=== PATIENT | male | born 1965 | race Caucasian/White ===

== ENCOUNTER → 2019-05-06 | Day surgery (SDC) | payer BC ==
[~2019-05-06] MED LIST: Iohexol 300 MG/ML 30 ML Bottle PO ONE; Iopamidol 612 MG/ML 150 ML Bottle IV SCH; Midazolam 1 MG/ML 2 ML SDV ONE; Propofol 200 MG/20 ML SDV ONE; Sodium Chloride 0.9% 1,000 ML IV SCH; Sodium Chloride 0.9% 10 ML Syringe FLUSH ONE; Sodium Chloride 0.9% 80 ML IV SCH; fentaNYL 100 MCG/2 ML SDV ONE
--- NOTE | 2019-05-06 12:46 | OR ---
DATE OF PROCEDURE: 05/06/2019 SURGEON: Ian Zafar MD PROCEDURE: Colonoscopy. FINDINGS: Mass at 15 cm (biopsied x8, distal aspect, tattooed in four quadrants). COMPLICATIONS: None. CONTENT SPECIALIST: None. ANESTHESIA: MAC. PREOPERATIVE DIAGNOSIS: Concern for hemorrhoids and requirement for colonoscopy. POSTOPERATIVE DIAGNOSIS: Concern for hemorrhoids and requirement for colonoscopy. RISKS: Risks, benefits, alternatives, and limitations including, but not limited to infection, bleeding, and perforation were explained to the patient, he wished to proceed. PROCEDURE IN DETAIL: The patient was placed in left lateral decubitus position. The colonoscope was introduced, and immediately at 15 cm, a mass which was near obstructing was noted. This was erythematous and had a small amount of bleeding associated with this. This was biopsied x8 using cold biopsy forceps. Scope was not able to be passed proximal to the mass. On retroflexion, no significant abnormalities. The patient tolerated the procedure well. Ian Zafar MD /[id number]
--- NOTE | 2019-05-06 14:54 | CRLCT ---
Final Report: INDICATION: sigmoid colon mass Indication: Sigmoid colon mass. Technique: CT of the chest, abdomen, and pelvis. 132 cc of Isovue-300 IV. Coronal/sagittal reconstruction images. Comparison: None. Findings: Chest: There is a mass present in the right lobe of the thyroid gland, which measures 3 centimeters on image 11, series 2. There is no thoracic lymphadenopathy by size criteria. There are nonenlarged lymph nodes present within the axilla, mediastinum, and pulmonary fitz. For example, 9 millimeter short axis dimension lymph node at station 4R image 44, series 2. Right lower lobe calcified granuloma. No pleural or pericardial effusion. Contralateral, smaller calcified granulomas are present. The lung windows demonstrate no endobronchial mass. There is no honeycomb formation. There is no traction bronchiectasis. There is no acute airspace disease. There is no pneumothorax. There are a few noncalcified pulmonary nodules also present, which are too small to undergo evaluation with PET-CT or biopsy. For example, 4 millimeter nodule in the right upper lobe in image 36, series 3. Abdomen/pelvis: There is a low-density lesion in segment VII of the liver, which is suspicious for a metastasis. This measures 17 millimeters in image 82, series 2. No dilation of intrahepatic biliary radicles. Gas within the left hepatic lobe, which may be pneumobilia. Portal venous gas is a possibility. This gas appears more central than would be expected for portal venous gas. There is no perihepatic ascites. There is no adrenal mass. Spleen size is normal. There is no pancreatic mass, pancreatic duct dilation, or glandular atrophy. There are symmetric nephrograms. There is no solid renal mass. Additional regions of reduced density in the left hepatic lobe near the fissure for the falciform ligament may represent focal fat deposition. These are seen well on image 101 of series 2. Circumferential wall thickening present about the rectum, which is seen best on image 194, series 2. A T3 lesion is suspected. There is gas present in the mesorectal fat, with thickening of the mesorectal fascia. This may be related to recent biopsy. This finding is seen best on image 205, series 2. There are suspicious lymph nodes in the mesorectal fat, which measure up to 8 millimeters in short axis on image 179, series 2. There is no evidence for a small bowel or colonic obstruction. Urinary bladder is normal. Nonenlarged lymph nodes present in both common femoral chains. No retroperitoneal adenopathy. The gastrohepatic ligament is normal. The bone windows demonstrate no lytic or blastic bone lesions. There is osteophytic spurring at the endplates of the thoracic spine. The vertebral body heights are maintained. Manubrium and body of the sternum are intact. Minimal anterolisthesis of L5 on S1, secondary to pars interarticularis defects. Impression: 1. Circumferential wall thickening present about the upper 1/3 of the rectum, seen best on image 193, series 2. On sagittal reconstruction images, this is seen approximately 11 centimeters from the anal verge. 2. There are adjacent lymph nodes in the mesorectal fat, which may represent N1 disease. 3. Mixed density, 17 millimeter lesion in segment VII of the liver is suspicious for a metastasis. MRI of the abdomen without and with intravenous gadolinium may be obtained to further assess disease burden. 4. Extraluminal gas present within the pelvis, adjacent to the lower 1/3 of the rectum, along with fat stranding in the mesorectal fat. This may be related to a recent biopsy. No drainable fluid collection. 5. Calcified and noncalcified pulmonary nodules. Noncalcified nodules are technically indeterminate. Granulomatous disease is favored over pulmonary metastases. 6. A message with these results was left for Dr. Zafar, 05/06/2019, 12:46 p.m. Dictated by Ian Razo MD @ 05/06/2019 12:47:50 PM Please note that all CT scans at this facility use dose modulation, iterative reconstruction, and/or weight-based dosing when appropriate to reduce radiation dose to as low as reasonably achievable. Dictated by: Ian Razo MD @ 05/06/2019 12:48:01 (Electronic Signature) MTDD
== END ==
LOC: JP.SDS 06:53
PROVIDERS: ATTEND Surgery
DX: Z12.11 Encounter for screening for malignant neoplasm of colon (principal); C19 Malignant neoplasm of rectosigmoid junction; Z87.891 Personal history of nicotine dependence
CPT/HCPCS: 45331; 71260; 74177; 88305; 88341; J2250; J2704; J3010; J7030; Q9965

== ENCOUNTER 2019-05-08 21:14 | Inpatient (IN) | payer BC ==
[2019-05-08] MEDS ORDERED: Ondansetron 4 MG/2 ML SDV IVPUSH ONE (21:51)
[2019-05-08] MEDS ORDERED: HYDROmorphone 0.5 MG/0.5 ML Syringe IVPUSH ONE (21:52)
--- NOTE | 2019-05-08 21:52 | EDM.PDOC ---
ED HPI GENERAL MEDICAL PROBLEM - General Chief Complaint: Abdominal Pain Stated Complaint: HAD COLONOSCOPY TUES-HAS PAIN Time Seen by Provider: 05/08/19 21:52 Source of Information: Reports: Patient History Limitations: Reports: No Limitations - History of Present Illness INITIAL COMMENTS - FREE TEXT/NARRATIVE: pt arrived with a histor of a acute onset of mid abdomanal pain. He has been doing alot of vomiting He is having severe heart burn. . He had a colonoscopy for rectal bleeding and was found to have a rectal lesion Onset: Other ( The abdomanal pain started today. He has had rectal bleeding. ) Duration: Hour(s): Location: Reports: Abdomen Associated Symptoms: Reports: Loss of Appetite, Nausea/Vomiting, Other ( persistent rectal bleeding, severe heart burn. 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 - Infectious Disease History Infectious Disease History: Reports: Chicken Pox - Past Surgical History GI Surgical History: Reports: Colonoscopy, Other (See Below) Other GI Surgeries/Procedures: 05/06/19, colonscopy, found sigmoid mass and spot on liver. Had a CT of chest, abd, pelvic. Musculoskeletal Surgical History: Reports: Knee Replacement Social & Family History - Family History Family Medical History: Noncontributory - Tobacco Use Smoking Status *Q: Never Smoker Second Hand Smoke Exposure: No - Caffeine Use Caffeine Use: Reports: Coffee - Recreational Drug Use Recreational Drug Use: No ED ROS GENERAL - Review of Systems Review Of Systems: See Below Constitutional: Reports: No Symptoms, Decreased Appetite HEENT: Reports: No Symptoms Respiratory: Reports: No Symptoms Cardiovascular: Reports: No Symptoms Endocrine: Reports: No Symptoms GI/Abdominal: Reports: Abdominal Pain, Bloody Stool, Nausea, Vomiting, Other ( severe abdomanal pain) ED EXAM, GI/ABD - Physical Exam Exam: See Below Text/Narrative:: pt is having severe abdomanal pain. He continues to pass blood. He is having severe gheartburn. He has been vomiting all day. Exam Limited By: No Limitations General Appearance: Alert, Anxious, Severe Distress Ears: Normal TMs Nose: Normal Inspection Throat/Mouth: Normal Inspection Head: Atraumatic Neck: Normal Inspection Respiratory/Chest: No Respiratory Distress Cardiovascular: Regular Rate, Rhythm GI/Abdominal Exam: No Distention (Male) Exam: Deferred Rectal (Males) Exam: Deferred Back Exam: Normal Inspection Neurological: Alert, Oriented, Normal Cognition Psychiatric: Normal Affect Course - Vital Signs Last Recorded V/S: Last Vital Signs Temp 36.7 C 05/08/19 21:41 Pulse 78 05/08/19 21:41 Resp 21 H 05/08/19 21:41 BP 148/86 H 05/08/19 21:41 Pulse Ox 98 05/08/19 21:41 - Orders/Labs/Meds Orders: Active Orders 24 hr Category Date Time Status EKG Documentation Completion [RC] ASDIRECTED Care 05/08/19 22:33 Active Iopamidol [Isovue-300 (61%)] Med 05/08/19 22:45 Active 126 ml IV . DIRECTED Sodium Chloride 0.9% [Normal Saline] 1,000 ml Med 05/08/19 22:00 Active IV ASDIRECTED Sodium Chloride 0.9% [Normal Saline] 80 ml Med 05/08/19 22:45 Active IV ASDIRECTED Sodium Chloride 0.9% [Saline Flush] Med 05/08/19 22:39 Active 10 ml FLUSH ASDIRECTED PRN EKG 12 Lead [EK] Routine Ther 05/08/19 22:33 Ordered Medication Orders Sodium Chloride (Normal Saline) 1,000 mls @ 999 mls/hr IV ASDIRECTED IRENA Last Admin: 05/08/19 22:28 Dose: 999 mls/hr Sodium Chloride (Normal Saline) 80 mls @ 3 mls/sec IV ASDIRECTED IRENA Last Admin: 05/08/19 23:13 Dose: 3 mls/sec Iopamidol (Isovue-300 (61%)) 126 ml IV . DIRECTED IRENA Last Admin: 05/08/19 23:13 Dose: 150 ml Sodium Chloride (Saline Flush) 10 ml FLUSH ASDIRECTED PRN PRN Reason: Keep Vein Open Labs: Laboratory Tests 05/08/19 05/08/19 05/08/19 Range/Units 21:52 21:52 21:52 WBC 7.0 (4.5-11.0) K/uL RBC 4.87 (4.30-5.90) M/uL Hgb 15.4 H (12.0-15.0) g/dL Hct 45.2 (40.0-54.0) % MCV 93 (80-98) fL MCH 32 H (27-31) pg MCHC 34 (32-36) % Plt Count 181 (150-400) K/uL Neut % (Auto) 72 H (36-66) % Lymph % (Auto) 15 L (24-44) % [place] % (Auto) 10 H (2-6) % Eos % (Auto) 3 (2-4) % Baso % (Auto) 0 (0-1) % Sodium 133 L (140-148) mmol/L Potassium 3.5 L (3.6-5.2) mmol/L Chloride 97 L (100-108) mmol/L Carbon Dioxide 29 (21-32) mmol/L Anion Gap 10.5 (5.0-14.0) mmol/L BUN 6 L (7-18) mg/dL Creatinine 0.7 L (0.8-1.3) mg/dL Est Cr Clr Drug Dosing 129.33 mL/min Estimated GFR (MDRD) > 60 (>60) Glucose 172 H (74-106) mg/dL Calcium 9.9 (8.5-10.1) mg/dL Total Bilirubin 1.0 (0.2-1.0) mg/dL AST 28 (15-37) U/L ALT 42 (12-78) U/L Alkaline Phosphatase 77 (46-116) U/L Troponin I (0.000-0.056) ng/mL Total Protein 7.2 (6.4-8.2) g/dL Albumin 3.2 L (3.4-5.0) g/dL Globulin 4.0 H (2.3-3.5) g/dL Albumin/Globulin Ratio 0.8 L (1.2-2.2) Urine Color Yellow Urine Appearance Clear Urine pH 8.0 (4.5-8.0) Ur Specific [place] 1.005 L (1.008-1.030) Urine Protein Negative (NEGATIVE) mg/dL Urine Glucose (UA) 100 H (NEGATIVE) mg/dL Urine Ketones Negative (NEGATIVE) mg/dL Urine Occult Blood Negative (NEGATIVE) Urine Nitrite Negative (NEGAITVE) Urine Bilirubin Negative (NEGATIVE) Urine Urobilinogen Normal (NORMAL) mg/dL Ur Leukocyte Esterase Negative (NEGATIVE) Urine RBC 0-5 (0-5) Urine WBC 0-5 (0-5) Ur Epithelial Cells Rare Amorphous Sediment Rare Urine Bacteria Rare Urine Mucus Few 05/08/19 Range/Units 22:33 WBC (4.5-11.0) K/uL RBC (4.30-5.90) M/uL Hgb (12.0-15.0) g/dL Hct (40.0-54.0) % MCV (80-98) fL MCH (27-31) pg MCHC (32-36) % Plt Count (150-400) K/uL Neut % (Auto) (36-66) % Lymph % (Auto) (24-44) % [place] % (Auto) (2-6) % Eos % (Auto) (2-4) % Baso % (Auto) (0-1) % Sodium (140-148) mmol/L Potassium (3.6-5.2) mmol/L Chloride (100-108) mmol/L Carbon Dioxide (21-32) mmol/L Anion Gap (5.0-14.0) mmol/L BUN (7-18) mg/dL Creatinine (0.8-1.3) mg/dL Est Cr Clr Drug Dosing mL/min Estimated GFR (MDRD) (>60) Glucose (74-106) mg/dL Calcium (8.5-10.1) mg/dL Total Bilirubin (0.2-1.0) mg/dL AST (15-37) U/L ALT (12-78) U/L Alkaline Phosphatase (46-116) U/L Troponin I < 0.017 (0.000-0.056) ng/mL Total Protein (6.4-8.2) g/dL Albumin (3.4-5.0) g/dL Globulin (2.3-3.5) g/dL Albumin/Globulin Ratio (1.2-2.2) Urine Color Urine Appearance Urine pH (4.5-8.0) Ur Specific [place] (1.008-1.030) Urine Protein (NEGATIVE) mg/dL Urine Glucose (UA) (NEGATIVE) mg/dL Urine Ketones (NEGATIVE) mg/dL Urine Occult Blood (NEGATIVE) Urine Nitrite (NEGAITVE) Urine Bilirubin (NEGATIVE) Urine Urobilinogen (NORMAL) mg/dL Ur Leukocyte Esterase (NEGATIVE) Urine RBC (0-5) Urine WBC (0-5) Ur Epithelial Cells Amorphous Sediment Urine Bacteria Urine Mucus Meds: Medications Generic Name Dose Route Start Last Admin Trade Name Olga PRN Reason Stop Dose Admin Sodium Chloride 1,000 mls @ 999 mls/hr 05/08/19 22:00 05/08/19 22:28 Normal Saline IV 999 mls/hr ASDIRECTED IRENA Administration Sodium Chloride 80 mls @ 3 mls/sec 05/08/19 22:45 05/08/19 23:13 Normal Saline IV 3 mls/sec ASDIRECTED IRENA Administration Iopamidol 126 ml 05/08/19 22:45 05/08/19 23:13 Isovue-300 (61%) IV 150 ml . DIRECTED IRENA Administration Sodium Chloride 10 ml 05/08/19 22:39 Saline Flush FLUSH ASDIRECTED PRN Keep Vein Open Discontinued Medications Generic Name Dose Route Start Last Admin Trade Name Olga PRN Reason Stop Dose Admin Hydromorphone HCl 0.5 mg 05/08/19 21:52 05/08/19 22:01 Dilaudid IVPUSH 05/08/19 21:53 0.5 mg ONETIME ONE Administration Ondansetron HCl 4 mg 05/08/19 21:51 05/08/19 21:59 Zofran IVPUSH 05/08/19 21:52 4 mg ONETIME ONE Administration Pantoprazole Sodium 40 mg 05/08/19 22:33 05/08/19 23:12 Protonix Iv IVPUSH 05/08/19 22:34 40 mg ONETIME ONE Administration - Re-Assessments/Exams Free Text/Narrative Re-Assessment/Exam: 05/08/19 23:47 pt had severe abdomanal pain which sounded like a intermittent obstructive picture. He has been vomiting all day. He now has severe heartburn. He has been passing blood. He had a recent colonoscopy which showed a probable rectal Ca. He has had a cat scan of the chest and abdoman. There is an area in the liver that is questionable. Pt is having heart burn which is unexplained and perhaps he should have a gastro, he has a possible lesion ion his liver which needs workup with a US to further look at the lesion. He will eventually need to be staged with a endorectal US to see if the lesion is through the muscle. 05/08/19 23:49 Departure - Departure Time of Disposition: 23:54 Disposition: Admitted As Inpatient 64 Condition: Fair Clinical Impression: Rectal cancer, Heartburn, Dehydration - Discharge Information Referrals: Queenie Royal MD [Primary Care Provider] - Forms: ED Department Discharge Care Plan Goals: [facility] to [facility] - My Orders Last 24 Hours: My Active Orders 05/08/19 22:00 Sodium Chloride 0.9% [Normal Saline] 1,000 ml IV ASDIRECTED 05/08/19 22:33 EKG Documentation Completion [RC] ASDIRECTED EKG 12 Lead [EK] Routine 05/08/19 22:39 Sodium Chloride 0.9% [Saline Flush] 10 ml FLUSH ASDIRECTED PRN 05/08/19 22:45 Iopamidol [Isovue-300 (61%)] 126 ml IV . DIRECTED Sodium Chloride 0.9% [Normal Saline] 80 ml IV ASDIRECTED - Assessment/Plan Last 24 Hours: My Active Orders 05/08/19 22:00 Sodium Chloride 0.9% [Normal Saline] 1,000 ml IV ASDIRECTED 05/08/19 22:33 EKG Documentation Completion [RC] ASDIRECTED EKG 12 Lead [EK] Routine 05/08/19 22:39 Sodium Chloride 0.9% [Saline Flush] 10 ml FLUSH ASDIRECTED PRN 05/08/19 22:45 Iopamidol [Isovue-300 (61%)] 126 ml IV . DIRECTED Sodium Chloride 0.9% [Normal Saline] 80 ml IV ASDIRECTED
[2019-05-08] MEDS ORDERED: Sodium Chloride 0.9% 1,000 ML IV SCH ×2 (22:00→23:45)
[2019-05-08] MEDS ORDERED: Pantoprazole 40 MG Vial IVPUSH ONE (22:33)
[2019-05-08] MEDS ORDERED: Sodium Chloride 0.9% 10 ML Syringe FLUSH PRN (22:39)
[2019-05-08] MEDS ORDERED: Iopamidol 612 MG/ML 150 ML Bottle IV SCH (22:45)
[2019-05-08] MEDS ORDERED: Sodium Chloride 0.9% 80 ML IV SCH (22:45)
--- NOTE | 2019-05-08 23:36 | CRLCT ---
INDICATION: Mid abdominal pain and vomiting, recent colonoscopy. TECHNIQUE: CT abdomen and pelvis acquired with 126 cc Isovue-300 intravenous contrast. COMPARISON: None. FINDINGS: Lower chest: Unremarkable. Liver: Normal in contour with a hypodense liver lesion at the dome measuring 1.4 centimeters, no significant interval change. Gallbladder and bile ducts: Unremarkable. No stones or inflammation. No biliary dilatation. Pancreas: Unremarkable. No mass or inflammation. Spleen: Unremarkable. Normal in size. No masses. Adrenal glands: Unremarkable. No nodules. Kidneys: Unremarkable. No masses, stones, or hydronephrosis. GI tract: The stomach is decompressed. Small bowel loops in the left flank are upper normal caliber without a well-defined transition point. Appendix is seen and is unremarkable. Colonic diverticulosis with focal circumferential thickening of the rectum measuring 5.0 centimeters which appears to significantly narrow the lumen although without evidence of obstruction. Appearance is consistent the patient`s known rectal mass. Previous perirectal air is no longer seen. However, note is made of adjacent lymph nodes measuring up to 11 millimeters in short axis. Vasculature: Atherosclerosis without abdominal aortic aneurysm. Pelvis: Bladder and prostate are unremarkable. Bones: Spondylolysis L5 with grade 1 anterolisthesis. IMPRESSION: 1. Rectal mass redemonstrated, highly suggestive of a colon neoplasm with adjacent lymphadenopathy, likely local spread. 2. Upper normal caliber small bowel loops. Appearance is nonspecific and there is no definite evidence for obstruction. Enteritis/ileus possible. 3. Indeterminate liver lesion measuring 1.4 centimeters, differential includes metastases. This is not significantly changed from the study 2 days prior. Please note that all CT scans at this facility use dose modulation, iterative reconstruction, and/or weight-based dosing when appropriate to reduce radiation dose to as low as reasonably achievable. Dictated by Jose Ahmadi MD @ May 08 2019 11:23PM Signed by Dr. Jose Ahmadi @ May 08 2019 11:34PM
[2019-05-09] MEDS ORDERED: LORazepam 2 MG/ML SDV IVPUSH ONE (00:14)
--- NOTE | 2019-05-09 00:39 | PCM.HP ---
H&P History of Present Illness - General Date of Service: 05/08/19 Admit Problem/Dx: Admission Diagnosis/Problem Admission Diagnosis/Problem Abdominal pain Source of Information: Patient, Family ( Joy Bell at bedside) History Limitations: Reports: No Limitations - History of Present Illness Initial Comments - Free Text/Narative: chief complaint: abdominal pain This is a 54 year old male present to the ER with uncontrolled abdominal pain and heart burn. reports he had a colonoscopy for rectal bleeding. It was noted on colonoscopy he has a rectal mass with a liver lesion. He was discharged to home. then develops rectal bleeding >10 stools, vomiting, heartburn all day on May 08. He could not longer tolerate the pain came to ER. Past History -53 pound weight loss without dieting since 2018 -rectal bleeding for few weeks -colonoscopy on May 06 with rectal mass and liver lesion by CT scan -had been healthy prior to the recent events. CT of chest, abdomen, pelvis and repeat CT abdomen pelvis shows lower chest unremarkable, liver with hypodense liver lesion at the dome measruing 1.4 centimeter. gallbladder and bile ducts unremarkable, pancreas unremarkably, spleen unremarkable, adrenal glands unremarkable, kidney unremarkable GI tract the stomach is decompressed. small bowel loops in the left flank are upper normal caliber without a well defined transition point. appendix is seen and unremarkable. Colonic diverticulosis wit focal circumferential thickening of the rectum measuring 5.0 centimeters which appears to significantly narrow the lumen although without evidence of obstruction. appearance is consistent the patient's known rectal mass. previous perirectal air is no longer seen however adjacent lymph nodes measuring up to 11 millimeters is short axis. Impression: 1. rectal mass, highly suggestive of colon neoplasm with adjacent lymphadenopathy, likely local spread. 2. upper normal caliber small bowel loops. appearance is non-specific and there is no definite evidence of obstruction. enteritis/ileus possible. 3. indeterminate liver lesion measuring 1.4 cm. differential includes metastases. this is not significantly changed from study 2 days prior. - Related Data Allergies/Adverse Reactions: Allergies Allergy/AdvReac Type Severity Reaction Status Date / Time No Known Allergies Allergy Verified 05/08/19 21:41 Home Medications: Home Meds NK [No Known Home Meds] 05/02/19 [History] Past Medical History Gastrointestinal History: Reports: Other (See Below) Other Gastrointestinal History: bloody stools, thought hemorrhoids. - Infectious Disease History Infectious Disease History: Reports: Chicken Pox - Past Surgical History GI Surgical History: Reports: Colonoscopy, Other (See Below) Other GI Surgeries/Procedures: 05/06/19, colonscopy, found sigmoid mass and spot on liver. Had a CT of chest, abd, pelvic. Musculoskeletal Surgical History: Reports: Knee Replacement Social & Family History - Family History Family Medical History: Noncontributory - Tobacco Use Smoking Status *Q: Never Smoker Second Hand Smoke Exposure: No - Caffeine Use Caffeine Use: Reports: Coffee - Recreational Drug Use Recreational Drug Use: No - Living Situation & Occupation Living situation: Reports: (lives in [place], [place]. with Joy Bell, have 7 children between them ages 31 to 19 years. One Son age 15 years on 2017.) H&P Review of Systems - Review of Systems: Review Of Systems: See Below General: Reports: Malaise, Weakness, Decreased Appetite, Weight Loss (53 pounds in the last 6 months.) HEENT: Reports: No Symptoms Pulmonary: Reports: No Symptoms Cardiovascular: Reports: No Symptoms Gastrointestinal: Reports: Abdominal Pain, Bloody Stool, Diarrhea, Decreased Appetite, Nausea, Vomiting Genitourinary: Reports: No Symptoms Musculoskeletal: Reports: No Symptoms Skin: Reports: No Symptoms Psychiatric: Reports: No Symptoms Neurological: Reports: No Symptoms Hematologic/Lymphatic: Reports: No Symptoms Immunologic: Reports: No Symptoms Exam - Exam Exam: See Below - Vital Signs Vital Signs: Last Vital Signs Temp 36.7 C 05/08/19 21:41 Pulse 78 05/08/19 21:41 Resp 21 H 05/08/19 21:41 BP 148/86 H 05/08/19 21:41 Pulse Ox 98 05/08/19 21:41 Weight: 84.368 kg - Exam General: Alert, Oriented, Cooperative, Mild Distress HEENT: PERRLA, Conjunctiva Clear Neck: Supple, Trachea Midline Lungs: Clear to Auscultation, Normal Respiratory Effort Cardiovascular: Regular Rate, Regular Rhythm GI/Abdominal Exam: Normal Bowel Sounds, Other (flat depressed abdomen with generalized tenderness) (Male) Exam: Deferred Rectal (Males) Exam: Deferred Back Exam: Normal Inspection, Full Range of Motion Extremities: Normal Inspection, Normal Range of Motion, Non-Tender, No Pedal Edema, Normal Capillary Refill Skin: Warm, Dry, Intact Neurological: Strength Equal Bilateral, Normal Speech, Normal Tone Neuro Extensive - Mental Status: Alert, Oriented x3, Normal Mood/Affect, Normal Cognition Psychiatric: Anxious (worried about recent changes in health.), Other (grief related to of 15 year old Son 10-22-2018) - Patient Data Lab Results Last 24 hrs: Laboratory Results - last 24 hr 05/08/19 05/08/19 05/08/19 Range/Units 21:52 21:52 21:52 WBC 7.0 (4.5-11.0) K/uL RBC 4.87 (4.30-5.90) M/uL Hgb 15.4 H (12.0-15.0) g/dL Hct 45.2 (40.0-54.0) % MCV 93 (80-98) fL MCH 32 H (27-31) pg MCHC 34 (32-36) % Plt Count 181 (150-400) K/uL Neut % (Auto) 72 H (36-66) % Lymph % (Auto) 15 L (24-44) % [place] % (Auto) 10 H (2-6) % Eos % (Auto) 3 (2-4) % Baso % (Auto) 0 (0-1) % Sodium 133 L (140-148) mmol/L Potassium 3.5 L (3.6-5.2) mmol/L Chloride 97 L (100-108) mmol/L Carbon Dioxide 29 (21-32) mmol/L Anion Gap 10.5 (5.0-14.0) mmol/L BUN 6 L (7-18) mg/dL Creatinine 0.7 L (0.8-1.3) mg/dL Est Cr Clr Drug Dosing 129.33 mL/min Estimated GFR (MDRD) > 60 (>60) Glucose 172 H (74-106) mg/dL Calcium 9.9 (8.5-10.1) mg/dL Total Bilirubin 1.0 (0.2-1.0) mg/dL AST 28 (15-37) U/L ALT 42 (12-78) U/L Alkaline Phosphatase 77 (46-116) U/L Troponin I (0.000-0.056) ng/mL Total Protein 7.2 (6.4-8.2) g/dL Albumin 3.2 L (3.4-5.0) g/dL Globulin 4.0 H (2.3-3.5) g/dL Albumin/Globulin Ratio 0.8 L (1.2-2.2) Urine Color Yellow Urine Appearance Clear Urine pH 8.0 (4.5-8.0) Ur Specific [place] 1.005 L (1.008-1.030) Urine Protein Negative (NEGATIVE) mg/dL Urine Glucose (UA) 100 H (NEGATIVE) mg/dL Urine Ketones Negative (NEGATIVE) mg/dL Urine Occult Blood Negative (NEGATIVE) Urine Nitrite Negative (NEGAITVE) Urine Bilirubin Negative (NEGATIVE) Urine Urobilinogen Normal (NORMAL) mg/dL Ur Leukocyte Esterase Negative (NEGATIVE) Urine RBC 0-5 (0-5) Urine WBC 0-5 (0-5) Ur Epithelial Cells Rare Amorphous Sediment Rare Urine Bacteria Rare Urine Mucus Few 05/08/19 Range/Units 22:33 WBC (4.5-11.0) K/uL RBC (4.30-5.90) M/uL Hgb (12.0-15.0) g/dL Hct (40.0-54.0) % MCV (80-98) fL MCH (27-31) pg MCHC (32-36) % Plt Count (150-400) K/uL Neut % (Auto) (36-66) % Lymph % (Auto) (24-44) % [place] % (Auto) (2-6) % Eos % (Auto) (2-4) % Baso % (Auto) (0-1) % Sodium (140-148) mmol/L Potassium (3.6-5.2) mmol/L Chloride (100-108) mmol/L Carbon Dioxide (21-32) mmol/L Anion Gap (5.0-14.0) mmol/L BUN (7-18) mg/dL Creatinine (0.8-1.3) mg/dL Est Cr Clr Drug Dosing mL/min Estimated GFR (MDRD) (>60) Glucose (74-106) mg/dL Calcium (8.5-10.1) mg/dL Total Bilirubin (0.2-1.0) mg/dL AST (15-37) U/L ALT (12-78) U/L Alkaline Phosphatase (46-116) U/L Troponin I < 0.017 (0.000-0.056) ng/mL Total Protein (6.4-8.2) g/dL Albumin (3.4-5.0) g/dL Globulin (2.3-3.5) g/dL Albumin/Globulin Ratio (1.2-2.2) Urine Color Urine Appearance Urine pH (4.5-8.0) Ur Specific [place] (1.008-1.030) Urine Protein (NEGATIVE) mg/dL Urine Glucose (UA) (NEGATIVE) mg/dL Urine Ketones (NEGATIVE) mg/dL Urine Occult Blood (NEGATIVE) Urine Nitrite (NEGAITVE) Urine Bilirubin (NEGATIVE) Urine Urobilinogen (NORMAL) mg/dL Ur Leukocyte Esterase (NEGATIVE) Urine RBC (0-5) Urine WBC (0-5) Ur Epithelial Cells Amorphous Sediment Urine Bacteria Urine Mucus Result Diagrams: 05/08/19 21:52 05/08/19 21:52 - Problem List (1) Rectal bleeding SNOMED Code(s): 98080081 ICD Code: K62.5 - HEMORRHAGE OF ANUS AND RECTUM Status: Acute Priority: High Current Visit: Yes (2) Abdominal pain SNOMED Code(s): 52961315 ICD Code: R10.9 - UNSPECIFIED ABDOMINAL PAIN Status: Acute Priority: High Current Visit: Yes Qualifiers: Abdominal location: generalized Qualified Code(s): R10.84 - Generalized abdominal pain (3) Rectal cancer SNOMED Code(s): 503760706 ICD Code: C20 - MALIGNANT NEOPLASM OF RECTUM Status: Acute Priority: High Current Visit: Yes (4) Hypokalemia SNOMED Code(s): 95778377 ICD Code: E87.6 - HYPOKALEMIA Status: Acute Priority: Medium Current Visit: Yes Problem List Initiated/Reviewed/Updated: Yes Orders Last 24hrs: Active Orders 24 hr Category Date Time Status Patient Status Manage Transfer [TRANSFER] Routine ADT 05/09/19 00:15 Ordered EKG Documentation Completion [RC] ASDIRECTED Care 05/08/19 22:33 Active Iopamidol [Isovue-300 (61%)] Med 05/08/19 22:45 Active 126 ml IV . DIRECTED Sodium Chloride 0.9% [Normal Saline] 1,000 ml Med 05/08/19 22:00 Active IV ASDIRECTED Sodium Chloride 0.9% [Normal Saline] 1,000 ml Med 05/08/19 23:45 Active IV ASDIRECTED Sodium Chloride 0.9% [Normal Saline] 80 ml Med 05/08/19 22:45 Active IV ASDIRECTED Sodium Chloride 0.9% [Saline Flush] Med 05/08/19 22:39 Active 10 ml FLUSH ASDIRECTED PRN Resuscitation Status Routine Resus Stat 05/09/19 00:16 Ordered EKG 12 Lead [EK] Routine Ther 05/08/19 22:33 Ordered Medication Orders Sodium Chloride (Normal Saline) 1,000 mls @ 999 mls/hr IV ASDIRECTED [facility] Last Admin: 05/08/19 22:28 Dose: 999 mls/hr Sodium Chloride (Normal Saline) 80 mls @ 3 mls/sec IV ASDIRECTED [facility] Last Admin: 05/08/19 23:13 Dose: 3 mls/sec Sodium Chloride (Normal Saline) 1,000 mls @ 999 mls/hr IV ASDIRECTED [facility] Last Admin: 05/08/19 23:52 Dose: 999 mls/hr Iopamidol (Isovue-300 (61%)) 126 ml IV . DIRECTED [facility] Last Admin: 05/08/19 23:13 Dose: 150 ml Sodium Chloride (Saline Flush) 10 ml FLUSH ASDIRECTED PRN PRN Reason: Keep Vein Open Assessment/Plan Comment:: ASSESSMENT AND PLAN - chief complaint: abdominal pain This is a 54 year old male present to the ER with uncontrolled abdominal pain and heart burn. reports he had a colonoscopy for rectal bleeding. It was noted on colonoscopy he has a rectal mass with a liver lesion. He was discharged to home. then develops rectal bleeding >10 stools, vomiting, heartburn all day on May 08. He could not longer tolerate the pain came to ER. Past History -53 pound weight loss without dieting since 2018 -rectal bleeding for few weeks -colonoscopy on May 06 with rectal mass and liver lesion by CT scan -had been healthy prior to the recent events. CT of chest, abdomen, pelvis and repeat CT abdomen pelvis shows lower chest unremarkable, liver with hypodense liver lesion at the dome measruing 1.4 centimeter. gallbladder and bile ducts unremarkable, pancreas unremarkably, spleen unremarkable, adrenal glands unremarkable, kidney unremarkable GI tract the stomach is decompressed. small bowel loops in the left flank are upper normal caliber without a well defined transition point. appendix is seen and unremarkable. Colonic diverticulosis wit focal circumferential thickening of the rectum measuring 5.0 centimeters which appears to significantly narrow the lumen although without evidence of obstruction. appearance is consistent the patient's known rectal mass. previous perirectal air is no longer seen however adjacent lymph nodes measuring up to 11 millimeters is short axis. Impression: 1. rectal mass, highly suggestive of colon neoplasm with adjacent lymphadenopathy, likely local spread. 2. upper normal caliber small bowel loops. appearance is non-specific and there is no definite evidence of obstruction. enteritis/ileus possible. 3. indeterminate liver lesion measuring 1.4 cm. differential includes metastases. this is not significantly changed from study 2 days prior.Maintenance issues - PLAN: Rectal mass, rectal bleeding, abdominal pain with nausea and vomiting. 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 I reasonably expect the patient will require inpatient services that span a period time over 2 midnights. I reasonably expect this patient to be discharged or transferred within 96 hours [facility] Disposition - anticipate discharge home after the hospital stay Primary care physician - Dr Queenie Royal, [facility] Hospitalist: Dr. Moya
[2019-05-09] MEDS ORDERED: Albuterol 0.083% 2.5 MG/3 ML Neb Soln NEB PRN (01:29)
[2019-05-09] MEDS ORDERED: Potassium Chloride 20 MEQ in Premix Bag 1 BAG IV ONE (01:29)
[2019-05-09] MEDS ORDERED: LORazepam 2 MG/ML SDV IV PRN ×2 (01:29→17:28)
[2019-05-09] MEDS ORDERED: HYDROmorphone/Normal Saline 15 MG/30 ML PCA IV PRN (01:29)
[2019-05-09] MEDS ORDERED: Acetaminophen 325 MG Tab PO PRN (01:29)
[2019-05-09] MEDS ORDERED: Naloxone 0.4 MG/ML SDV IVPUSH PRN (01:29)
[2019-05-09] MEDS ORDERED: Ondansetron 4 MG Tab.DIS PO PRN (01:29)
[2019-05-09] MEDS: Sodium Chloride 0.9% 1,000 ML IV SCH ×2 (02:10→10:07)
[2019-05-09] MEDS ORDERED: Pantoprazole 40 MG Vial IVPUSH SCH (09:00)
[2019-05-09] MEDS ORDERED: Acetaminophen/HYDROcodone 325-5 MG Tab PO PRN (09:49)
[2019-05-09] MEDS: Ibuprofen 600 MG Tab PO SCH ×2 (10:38→17:57)
--- NOTE | 2019-05-09 11:25 | PN ---
DATE OF SERVICE: 05/09/2019 SUBJECTIVE: The patient was admitted by hospitalist service in the evening due to abdominal pain. stable. He had some nausea and vomiting, but not currently. The patient is having diarrhea. OBJECTIVE: VITAL SIGNS: Stable. ABDOMEN: No rebound, no guarding. He is not distended. ASSESSMENT: Colorectal cancer. PLAN: The patient's family and I had a discussion about taking the patient to surgery today versus later in the week. He will require a sigmoid colon resection in addition to liver biopsy. We did discuss laparoscopic surgery. However, due to the evaluation of liver and possible metastasis at this time, I think an open surgery would be best for him. In addition, we discussed the risks, benefits, alternatives, and limitations of surgery including infection, bleeding, ostomy requirements, wound infection and complications, anastomotic failure, cardiovascular compromise along with sepsis were all explained to the patient and wished to proceed. He was also explained the alternatives. We also discussed the fact that we discussed this preoperatively with Oncology and the current recommendation would be a liver biopsy with primary resection and evaluate further and deliver at later date. As far as the timing, the patient is having diarrhea. He is not distended. CT scan shows no evidence of obstruction. The patient would prefer to perform this early next week. I think this is acceptable. He will remain in the hospital until he can tolerate diet and his pain is well controlled. Ian Zafar MD /[id number]
[2019-05-09] MEDS ORDERED: oxyCODONE 5 MG Tab PO PRN (17:27)
--- NOTE | 2019-05-09 20:29 | PCM.PN ---
- General Info Date of Service: 05/09/19 Subjective Update: Mr. Hamilton is a 54-year-old gentleman who was admitted last night with abdominal pain and hematochezia. He has had difficulty with blood in his stool over the past few weeks, on May 16 underwent colonoscopy and unfortunately was found to have a lower colorectal carcinoma. Pathology results from biopsies obtained at the time of colonoscopy confirm malignancy. Over the last 3 days his had increase in blood in the stool and significant abdominal pain especially with bowel movements. Pain is under better control since hospitalization, hemoglobin level has remained stable. - Review of Systems General: Reports: No Symptoms, Weakness. Denies: Fever, Chills Pulmonary: Reports: No Symptoms Cardiovascular: Reports: No Symptoms Gastrointestinal: Reports: Abdominal Pain, Decreased Appetite, Hematochezia, Nausea. Denies: Vomiting - Patient Data Vitals - Most Recent: Last Vital Signs Temp 96.9 F 05/09/19 15:20 Pulse 68 05/09/19 15:20 Resp 16 05/09/19 15:20 BP 140/82 05/09/19 15:20 Pulse Ox 97 05/09/19 15:20 Weight - Most Recent: 198 lb 9.584 oz I&O - Last 24 Hours: Intake & Output 05/09/19 05/09/19 05/09/19 06:59 14:59 22:59 Intake Total 600 4736 Balance 600 4736 Lab Results Last 24 Hours: Laboratory Results - last 24 hr 05/08/19 05/08/19 05/08/19 Range/Units 21:52 21:52 21:52 WBC 7.0 (4.5-11.0) K/uL RBC 4.87 (4.30-5.90) M/uL Hgb 15.4 H (12.0-15.0) g/dL Hct 45.2 (40.0-54.0) % MCV 93 (80-98) fL MCH 32 H (27-31) pg MCHC 34 (32-36) % Plt Count 181 (150-400) K/uL Neut % (Auto) 72 H (36-66) % Lymph % (Auto) 15 L (24-44) % [place] % (Auto) 10 H (2-6) % Eos % (Auto) 3 (2-4) % Baso % (Auto) 0 (0-1) % Sodium 133 L (140-148) mmol/L Potassium 3.5 L (3.6-5.2) mmol/L Chloride 97 L (100-108) mmol/L Carbon Dioxide 29 (21-32) mmol/L Anion Gap 10.5 (5.0-14.0) mmol/L BUN 6 L (7-18) mg/dL Creatinine 0.7 L (0.8-1.3) mg/dL Est Cr Clr Drug Dosing 129.33 mL/min Estimated GFR (MDRD) > 60 (>60) Glucose 172 H (74-106) mg/dL Calcium 9.9 (8.5-10.1) mg/dL Total Bilirubin 1.0 (0.2-1.0) mg/dL AST 28 (15-37) U/L ALT 42 (12-78) U/L Alkaline Phosphatase 77 (46-116) U/L Troponin I (0.000-0.056) ng/mL Total Protein 7.2 (6.4-8.2) g/dL Albumin 3.2 L (3.4-5.0) g/dL Globulin 4.0 H (2.3-3.5) g/dL Albumin/Globulin Ratio 0.8 L (1.2-2.2) Urine Color Yellow Urine Appearance Clear Urine pH 8.0 (4.5-8.0) Ur Specific [place] 1.005 L (1.008-1.030) Urine Protein Negative (NEGATIVE) mg/dL Urine Glucose (UA) 100 H (NEGATIVE) mg/dL Urine Ketones Negative (NEGATIVE) mg/dL Urine Occult Blood Negative (NEGATIVE) Urine Nitrite Negative (NEGAITVE) Urine Bilirubin Negative (NEGATIVE) Urine Urobilinogen Normal (NORMAL) mg/dL Ur Leukocyte Esterase Negative (NEGATIVE) Urine RBC 0-5 (0-5) Urine WBC 0-5 (0-5) Ur Epithelial Cells Rare Amorphous Sediment Rare Urine Bacteria Rare Urine Mucus Few 05/08/19 05/09/19 05/09/19 Range/Units 22:33 06:01 06:01 WBC 5.6 (4.5-11.0) K/uL RBC 4.73 (4.30-5.90) M/uL Hgb 15.2 H (12.0-15.0) g/dL Hct 45.1 (40.0-54.0) % MCV 95 (80-98) fL MCH 32 H (27-31) pg MCHC 34 (32-36) % Plt Count 150 (150-400) K/uL Neut % (Auto) 66 (36-66) % Lymph % (Auto) 17 L (24-44) % [place] % (Auto) 12 H (2-6) % Eos % (Auto) 5 H (2-4) % Baso % (Auto) 1 (0-1) % Sodium 138 L (140-148) mmol/L Potassium 4.3 (3.6-5.2) mmol/L Chloride 103 (100-108) mmol/L Carbon Dioxide 30 (21-32) mmol/L Anion Gap 9.3 (5.0-14.0) mmol/L BUN 5 L (7-18) mg/dL Creatinine 0.8 (0.8-1.3) mg/dL Est Cr Clr Drug Dosing 113.32 mL/min Estimated GFR (MDRD) > 60 (>60) Glucose 129 H (74-106) mg/dL Calcium 8.7 (8.5-10.1) mg/dL Total Bilirubin (0.2-1.0) mg/dL AST (15-37) U/L ALT (12-78) U/L Alkaline Phosphatase (46-116) U/L Troponin I < 0.017 (0.000-0.056) ng/mL Total Protein (6.4-8.2) g/dL Albumin (3.4-5.0) g/dL Globulin (2.3-3.5) g/dL Albumin/Globulin Ratio (1.2-2.2) Urine Color Urine Appearance Urine pH (4.5-8.0) Ur Specific [place] (1.008-1.030) Urine Protein (NEGATIVE) mg/dL Urine Glucose (UA) (NEGATIVE) mg/dL Urine Ketones (NEGATIVE) mg/dL Urine Occult Blood (NEGATIVE) Urine Nitrite (NEGAITVE) Urine Bilirubin (NEGATIVE) Urine Urobilinogen (NORMAL) mg/dL Ur Leukocyte Esterase (NEGATIVE) Urine RBC (0-5) Urine WBC (0-5) Ur Epithelial Cells Amorphous Sediment Urine Bacteria Urine Mucus Med Orders - Current: Current Medications Acetaminophen (Tylenol) 650 mg PO Q4H PRN PRN Reason: Pain (Mild 1-3)/fever Hydrocodone Bitart/Acetaminophen ([place] 325-5 Mg) 1 - 2 tab PO Q4H PRN PRN Reason: Abdominal Pain Albuterol (Proventil Neb Soln) 2.5 mg NEB Q4H PRN PRN Reason: Shortness Of Breath/wheezing Ibuprofen (Motrin) 600 mg PO Q8H [facility] Last Admin: 05/09/19 17:57 Dose: 600 mg Lorazepam (Ativan) 0.5 mg IV Q4H PRN PRN Reason: Nausea/Vomiting Ondansetron HCl (Zofran Odt) 4 mg PO Q6H PRN PRN Reason: Nausea able to take PO Oxycodone HCl (Oxycodone) 10 mg PO Q4H PRN PRN Reason: Pain Pantoprazole Sodium (Protonix Iv) 40 mg IVPUSH Q12H [facility] Last Admin: 05/09/19 10:38 Dose: 40 mg Discontinued Medications Hydromorphone HCl (Dilaudid) 0.5 mg IVPUSH ONETIME ONE Stop: 05/08/19 21:53 Last Admin: 05/08/19 22:01 Dose: 0.5 mg Hydromorphone HCl (Dilaudid Study Lead 15 Mg In Ns 30 Ml) 0 mg IV ASDIRECTED PRN; Protocol PRN Reason: Pain Last Admin: 05/09/19 02:08 Dose: 15 mg Sodium Chloride (Normal Saline) 1,000 mls @ 999 mls/hr IV ASDIRECTED [facility] Last Admin: 05/08/19 22:28 Dose: 999 mls/hr Sodium Chloride (Normal Saline) 80 mls @ 3 mls/sec IV ASDIRECTED [facility] Last Admin: 05/08/19 23:13 Dose: 3 mls/sec Sodium Chloride (Normal Saline) 1,000 mls @ 999 mls/hr IV ASDIRECTED [facility] Last Admin: 05/08/19 23:52 Dose: 999 mls/hr Potassium Chloride 20 meq/ (Premix) 100 mls @ 50 mls/hr IV ONETIME ONE Stop: 05/09/19 03:28 Last Admin: 05/09/19 02:31 Dose: 50 mls/hr Sodium Chloride (Normal Saline) 1,000 mls @ 125 mls/hr IV ASDIRECTED [facility] Last Admin: 05/09/19 10:07 Dose: 125 mls/hr Iopamidol (Isovue-300 (61%)) 126 ml IV . DIRECTED [facility] Last Admin: 05/08/19 23:13 Dose: 150 ml Lidocaine HCl (Xylocaine-Mpf 1%) 5 ml INJECT ONETIME ONE Stop: 05/09/19 02:22 Last Admin: 05/09/19 02:32 Dose: 5 ml Lorazepam (Ativan) 1 mg IVPUSH ONETIME ONE Stop: 05/09/19 00:15 Last Admin: 05/09/19 00:41 Dose: 1 mg Lorazepam (Ativan) 1 mg IV Q6H PRN PRN Reason: Nausea/Vomiting Naloxone HCl (Narcan) 0.4 mg IVPUSH Q2M PRN PRN Reason: Respiratory Distress Ondansetron HCl (Zofran) 4 mg IVPUSH ONETIME ONE Stop: 05/08/19 21:52 Last Admin: 05/08/19 21:59 Dose: 4 mg Pantoprazole Sodium (Protonix Iv) 40 mg IVPUSH ONETIME ONE Stop: 05/08/19 22:34 Last Admin: 05/08/19 23:12 Dose: 40 mg Sodium Chloride (Saline Flush) 10 ml FLUSH ASDIRECTED PRN PRN Reason: Keep Vein Open - Exam Quality Assessment: DVT Prophylaxis General: Alert, Oriented, Cooperative, Mild Distress Lungs: Clear to Auscultation, Normal Respiratory Effort Cardiovascular: Regular Rate, Regular Rhythm, No Murmurs GI/Abdominal Exam: Soft, Non-Tender, No Organomegaly, No Distention Extremities: Non-Tender, No Pedal Edema - Problem List Review Problem List Initiated/Reviewed/Updated: Yes - My Orders Last 24 Hours: My Active Orders 05/09/19 12:24 Dietary Supplements [RC] WITHMEALSANDBED 05/09/19 17:27 oxyCODONE 10 mg PO Q4H PRN 05/09/19 17:28 LORazepam [Ativan] 0.5 mg IV Q4H PRN Convert IV to Saline Lock [OM.PC] Routine 05/09/19 Dinner Full Liquid Diet [DIET] 05/10/19 05:11 HGB [HEMOGLOBIN] [HEME] AM 05/10/19 07:30 Pantoprazole [ProTONIX] 40 mg PO BIDAC - Plan Plan:: ASSESSMENT AND PLAN COLORECTAL CARCINOMA-densified on colonoscopy 3 days ago, complicated by leading and pain. Current bleeding does not seem to be hemodynamically significant -Pain medication as needed -Full liquid diet -Dietary supplements 4 times daily -Saline lock IV -Surgery Sunday with Dr. Zafar Hypokalemia-resolved after potassium replacement Maintenance issues - DVT prophylaxis - SCD - GI prophylaxis - PPI - Nutrition - full liquids - Payne catheter - not indicated -consult to Spiritual CODE STATUS - full Admission justification - This patient will be admitted for inpatient services and is medically appropriate meeting medical necessity for inpatient admission as outlined in my documentation. I reasonably expect the patient will require inpatient services that span a period time over 2 midnights. I reasonably expect this patient to be discharged or transferred within 96 hours [facility]. Disposition - anticipate discharge home tomorrow Primary care physician - Dr Queenie Royal, [facility] Hospitalist: Dr. Moya
[2019-05-10] MEDS: Ibuprofen 600 MG Tab PO SCH ×2 (02:48→11:04)
[2019-05-10] MEDS ORDERED: Pantoprazole 40 MG Tab.CR PO SCH (07:30)
--- NOTE | 2019-05-10 12:32 | PCM.DCSUM1 ---
Discharge Summary - Hospital Course Brief History: Mr. Hamilton is a 54-year-old gentleman who was admitted through the emergency department with abdominal pain and bloody stools secondary to underlying colorectal carcinoma. - Discharge Data Discharge Date: 05/10/19 Discharge Disposition: Home, Self-Care 01 Condition: Fair - Discharge Diagnosis/Problem(s) (1) Heartburn SNOMED Code(s): 90898963 ICD Code: R12 - HEARTBURN Status: Acute Current Visit: Yes (2) Dehydration SNOMED Code(s): 95066699 ICD Code: E86.0 - DEHYDRATION Status: Acute Current Visit: Yes (3) Rectal bleeding SNOMED Code(s): 50874009 ICD Code: K62.5 - HEMORRHAGE OF ANUS AND RECTUM Status: Acute Priority: High Current Visit: Yes (4) Rectal cancer SNOMED Code(s): 621266823 ICD Code: C20 - MALIGNANT NEOPLASM OF RECTUM Status: Chronic Priority: High Current Visit: Yes - Patient Summary/Data Consults: Consultations 05/09/19 01:29 Consult to Physician [CONS] Routine Consulting Provider: Ian Zafar Call Completed to Consulting Physician: No Reason for Consult: 05/06 colonscopy, rectal bleeding, nausea, vomiting Date Notified: 05/09/19 Consult to Spiritual Care [CONS] Routine 05/09/19 09:47 Consult to Dietary [Consult to [employer]] [CONS] Routine Comment: Physician Instructions: Quantity: Reason for Consult: please talk to charge nurse Hospital Course: Mr. Hamilton is a 54-year-old gentleman who was admitted through the emergency department with abdominal pain and hematochezia. He has had difficulty with blood in his stool over the past few weeks, on May 06 underwent colonoscopy and unfortunately was found to have a lower colorectal carcinoma. Pathology results from biopsies obtained at the time of colonoscopy confirm malignancy. Over the last 3 days his had increase in blood in the stool and significant abdominal pain especially with bowel movements. On admission he was given pain medication and also medication as needed for nausea. IV fluids were initiated for hydration. Following morning hemoglobin level had remained fairly stable and he was feeling somewhat improved with less pain and nausea. IV fluids were discontinued and he was transitioned to oral pain medication. By the morning of discharge was much more stable with good control of abdominal pain and no further nausea and vomiting. He continued to experience some bloody stools, hemoglobin dropped only mildly consistent with dilution secondary to hydration. He will be discharged home with pain medication and medication for nausea as needed. He will be getting his bowel prep today and will return on May [address] Zafar. Activity will be as tolerated and he will remain on a full liquid diet, with nutritional supplements 4 times daily. He is instructed to return to the emergency department if he notes recurrent symptoms of severe pain or increase in bleeding. - Patient Instructions Diet: Full Liquid Diet Diet, Other: 8 ounces of dietary supplement 4 times daily Activity: As Tolerated Other/Special Instructions: Begin bowel prep today. Return for surgery May 12. - Discharge Plan *PRESCRIPTION DRUG MONITORING PROGRAM REVIEWED*: Not Applicable *COPY OF PRESCRIPTION DRUG MONITORING REPORT IN PATIENT OSMANI: Not Applicable Prescriptions/Med Rec: Acetaminophen/HYDROcodone [Eastern 325-5 MG] 1 tab PO Q6H PRN #15 tab PRN Reason: Abdominal Pain Ondansetron [Zofran ODT] 4 mg PO Q6H PRN #12 tab.dis PRN Reason: Nausea able to take PO Pantoprazole [ProTONIX] 40 mg PO BIDAC #30 tab.cr Home Medications: Home Meds Acetaminophen/HYDROcodone [Eastern 325-5 MG] 1 tab PO Q6H PRN #15 tab 05/10/19 [Rx ] Ondansetron [Zofran ODT] 4 mg PO Q6H PRN #12 tab.dis 05/10/19 [Rx] Pantoprazole [ProTONIX] 40 mg PO BIDAC #30 tab.cr 05/10/19 [Rx] Referrals: Queenie Royal MD [Primary Care Provider] - - Discharge Summary/Plan Comment DC Time >30 min.: No - Patient Data Vitals - Most Recent: Last Vital Signs Temp 97.6 F 05/10/19 11:00 Pulse 82 05/10/19 11:00 Resp 18 05/10/19 11:00 BP 154/81 H 05/10/19 11:00 Pulse Ox 97 05/10/19 11:00 Weight - Most Recent: 198 lb 9.584 oz I&O - Last 24 hours: Intake & Output 05/09/19 05/10/19 05/10/19 22:59 06:59 14:59 Intake Total 4736 Output Total 150 Balance 4736 -150 Lab Results - Last 24 hrs: Laboratory Results - last 24 hr 05/10/19 Range/Units 05:30 Hgb 14.5 (12.0-15.0) g/dL Med Orders - Current: Current Medications Acetaminophen (Tylenol) 650 mg PO Q4H PRN PRN Reason: Pain (Mild 1-3)/fever Hydrocodone Bitart/Acetaminophen (Eastern 325-5 Mg) 1 - 2 tab PO Q4H PRN PRN Reason: Abdominal Pain Albuterol (Proventil Neb Soln) 2.5 mg NEB Q4H PRN PRN Reason: Shortness Of Breath/wheezing Ibuprofen (Motrin) 600 mg PO Q8H [facility] Last Admin: 05/10/19 11:04 Dose: Not Given Lorazepam (Ativan) 0.5 mg IV Q4H PRN PRN Reason: Nausea/Vomiting Ondansetron HCl (Zofran Odt) 4 mg PO Q6H PRN PRN Reason: Nausea able to take PO Oxycodone HCl (Oxycodone) 10 mg PO Q4H PRN PRN Reason: Pain Pantoprazole Sodium (Protonix) 40 mg PO BIDAC [facility] Last Admin: 05/10/19 07:41 Dose: 40 mg Discontinued Medications Hydromorphone HCl (Dilaudid) 0.5 mg IVPUSH ONETIME ONE Stop: 05/08/19 21:53 Last Admin: 05/08/19 22:01 Dose: 0.5 mg Hydromorphone HCl (Dilaudid [employer] Insulator Helper 15 Mg In Ns 30 Ml) 0 mg IV ASDIRECTED PRN; Protocol PRN Reason: Pain Last Admin: 05/09/19 02:08 Dose: 15 mg Sodium Chloride (Normal Saline) 1,000 mls @ 999 mls/hr IV ASDIRECTED [facility] Last Admin: 05/08/19 22:28 Dose: 999 mls/hr Sodium Chloride (Normal Saline) 80 mls @ 3 mls/sec IV ASDIRECTED [facility] Last Admin: 05/08/19 23:13 Dose: 3 mls/sec Sodium Chloride (Normal Saline) 1,000 mls @ 999 mls/hr IV ASDIRECTED [facility] Last Admin: 05/08/19 23:52 Dose: 999 mls/hr Potassium Chloride 20 meq/ (Premix) 100 mls @ 50 mls/hr IV ONETIME ONE Stop: 05/09/19 03:28 Last Admin: 05/09/19 02:31 Dose: 50 mls/hr Sodium Chloride (Normal Saline) 1,000 mls @ 125 mls/hr IV ASDIRECTED [facility] Last Admin: 05/09/19 10:07 Dose: 125 mls/hr Iopamidol (Isovue-300 (61%)) 126 ml IV . DIRECTED [facility] Last Admin: 05/08/19 23:13 Dose: 150 ml Lidocaine HCl (Xylocaine-Mpf 1%) 5 ml INJECT ONETIME ONE Stop: 05/09/19 02:22 Last Admin: 05/09/19 02:32 Dose: 5 ml Lorazepam (Ativan) 1 mg IVPUSH ONETIME ONE Stop: 05/09/19 00:15 Last Admin: 05/09/19 00:41 Dose: 1 mg Lorazepam (Ativan) 1 mg IV Q6H PRN PRN Reason: Nausea/Vomiting Naloxone HCl (Narcan) 0.4 mg IVPUSH Q2M PRN PRN Reason: Respiratory Distress Ondansetron HCl (Zofran) 4 mg IVPUSH ONETIME ONE Stop: 05/08/19 21:52 Last Admin: 05/08/19 21:59 Dose: 4 mg Pantoprazole Sodium (Protonix Iv) 40 mg IVPUSH ONETIME ONE Stop: 05/08/19 22:34 Last Admin: 05/08/19 23:12 Dose: 40 mg Pantoprazole Sodium (Protonix Iv) 40 mg IVPUSH Q12H [facility] Last Admin: 05/09/19 10:38 Dose: 40 mg Sodium Chloride (Saline Flush) 10 ml FLUSH ASDIRECTED PRN PRN Reason: Keep Vein Open - Exam General: Reports: Alert, Oriented, Cooperative, Mild Distress Lungs: Reports: Clear to Auscultation, Normal Respiratory Effort Cardiovascular: Reports: Regular Rate, Regular Rhythm, No Murmurs GI/Abdominal Exam: Soft, Non-Tender, No Organomegaly, No Distention
== END 2019-05-10 14:11 | disposition home or self-care (01) | DRG 240 ==
LOC: JP.ED 21:14 → JP.MS 05-09 00:15
PROVIDERS: ADMIT Hospitalist; ATTEND Hospitalist
DX: C19 Malignant neoplasm of rectosigmoid junction (principal); E86.0 Dehydration; R12 Heartburn; K76.9 Liver disease, unspecified; K62.5 Hemorrhage of anus and rectum; E87.6 Hypokalemia; Z96.659 Presence of unspecified artificial knee joint
CPT/HCPCS: 36415; 74177; 80048; 80053; 81001; 84484; 85018; 85025; 93005; 96361; 96374; 96375; 99284-25; A9270-GY; C9113; J1170; J2001; J2060; J2405; J3480; J7030

== ENCOUNTER 2019-05-12 11:37 | Day surgery (SDC) | payer BC ==
[2019-05-12] MEDS: Sodium Chloride 0.9% 1,000 ML IV SCH ×2 (12:28→17:13)
[2019-05-12] MEDS ORDERED: metroNIDAZOLE/Normal Saline 500 MG in Premix Bag 1 BAG IV ONE (13:00)
[2019-05-12] MEDS ORDERED: ceFAZolin 2 GM in Premix Bag 1 BAG IV ONE (13:00)
[2019-05-12] MEDS ORDERED: fentaNYL 250 MCG/5 ML SDV ONE (13:39)
[2019-05-12] MEDS ORDERED: Glycopyrrolate 0.2 MG/ML 5 ML MDV ONE (13:40)
[2019-05-12] MEDS ORDERED: Ondansetron 4 MG/2 ML SDV ONE (13:40)
[2019-05-12] MEDS ORDERED: Propofol 200 MG/20 ML SDV ONE (13:40)
[2019-05-12] MEDS ORDERED: Dexamethasone 4 MG/ML SDV ONE (13:40)
[2019-05-12] MEDS ORDERED: Neostigmine Methylsulfate 1 MG/ML 5 ML Syringe ONE (13:40)
[2019-05-12] MEDS ORDERED: Rocuronium 50 MG/5 ML Vial ONE (13:40)
[2019-05-12] MEDS ORDERED: Succinylcholine 200 MG/10 ML MDV ONE (13:40)
[2019-05-12] MEDS ORDERED: fentaNYL 2,500 MCG in Sodium Chloride 0.9% 200 ML EPIDUR SCH (13:43)
[2019-05-12] MEDS ORDERED: Naloxone 0.4 MG/ML SDV IVPUSH PRN (13:43)
[2019-05-12] MEDS ORDERED: Sodium Chloride 0.9% 10 ML ONE (15:01)
[2019-05-12] MEDS ORDERED: ePHEDrine 50 MG/ML SDV ONE (15:16)
[2019-05-12] MEDS ORDERED: Sugammadex Sodium 200 MG/2 ML VIAL ONE (15:56)
[2019-05-12] MEDS ORDERED: Morphine 2 MG/ML Syringe IVPUSH PRN (20:34)
[2019-05-12] MEDS ORDERED: Zolpidem 5 MG Tab PO PRN (20:35)
[2019-05-12] MEDS: Acetaminophen/HYDROcodone 325-5 MG Tab PO PRN (20:57)
[2019-05-12] MEDS ORDERED: Tamsulosin 0.4 MG Cap.ER PO SCH (21:00)
[2019-05-13] MEDS: Acetaminophen/HYDROcodone 325-5 MG Tab PO PRN ×2 (05:05→09:40)
[2019-05-13] MEDS: Sodium Chloride 0.9% 1,000 ML IV SCH (06:38)
--- NOTE | 2019-05-13 08:42 | OR ---
DATE OF PROCEDURE: 05/12/2019 SURGEON: Ian Zafar MD PROCEDURES: 1. Diagnostic laparoscopy. 2. Liver biopsy, segment II. 3. Biopsy of nodular studding of right colon. INDICATIONS: This is a pleasant 54-year-old male, who underwent a colonoscopy and was diagnosed with a mass at 15 cm. The patient underwent a CT scan, which showed a mass on the liver. In addition, the patient has a mass at 15 cm, and it was unclear if this was a truly rectal cancer or a colon cancer. In addition, the patient has had signs of complete bowel obstruction; therefore, colonoscopy would be indicated to evaluate if the patient has a complete rectal cancer obstruction, thus requiring an emergent resection for obstruction. RISKS: Risks, benefits, alternatives, and limitations including, but not limited to infection; bleeding; biopsies; false positives and false negatives; possibility of injury to bowel, bladder and blood vessels. The patient understands these procedures and risks, and wishes to proceed. FINDINGS: 1. Improvement in the lumen of the rectal cancer, although, this is greater than two- thirds of the circumference of the rectum, however, stool can still pass through with a lumen of approximately 1 cm or less. 2. Mass at segment II concerning for colorectal cancer (biopsied using electrocautery). 3. No definitive masses noted at segment VII. Multiple images were taken of this. 4. Nodular studding, right ascending colon, concerning for malignancy. ANESTHESIA: General/local. PROCEDURE IN DETAIL: The patient was placed in supine position. A supraumbilical curvilinear incision was made. A Veress needle was used to enter the abdomen without abnormality. A drop test was performed without abnormality. A diagnostic laparoscopy was investigated first. The colon was inspected. The sigmoid colon with its mass was distal to the pelvic brim. There was no evidence of perforation or contamination. This was performed in conjunction with two 5 mm ports placed in left and right abdomen. The colon was inspected. In the right colon, there were nodularities concerning for metastatic spread and 2 of these were biopsied using scissors and counter traction. Of note, no energy source was used in proximity to the colon. The small bowel was inspected. The liver itself in segment VII, VIII, IX and all other segments, there was no evidence of nodularity or studding. However, in segment II, there was an area approximately 1 cm in size concerning for metastases, which was biopsied. Biopsy area was controlled with electrocautery. No other abnormalities were noted. The air was removed. The wounds were closed with 3-0 Vicryl and 4-0 Vicryl interrupted running fashion after irrigation. Dermabond was applied. Colonoscopy was then performed next. This did show narrowing of his lumen, however, this was stable. The patient did have obstruction in the post-colonoscopy phase, however, this appears to be resolved. In summation, the patient may proceed with radiation and chemotherapy. There was no evidence of perforation as was the concern on the original CT scan. In addition, there was concern for metastases to both the liver and the right colon. The patient tolerated the procedure well. Ian Zafar MD /[id number]
== END 2019-05-13 14:15 | disposition home or self-care (01) ==
LOC: JP.SDS 11:37 → JP.MS 16:45 → JP.SDS 05-13 14:15
PROVIDERS: ATTEND Surgery
DX: C78.7 Secondary malignant neoplasm of liver and intrahepatic bile duct (principal); C20 Malignant neoplasm of rectum; K76.0 Fatty (change of) liver, not elsewhere classified; K21.9 Gastro-esophageal reflux disease without esophagitis; E87.6 Hypokalemia
CPT/HCPCS: 36415; 45330; 47379; 49321; 80048; 85027; 86850; 86900; 86901; 86920; 86922; A9270; J0330; J0690; J1100; J2405; J2704; J2710; J3010; J3490; J7030; J7050; 88304; 88307; 88341; 88342

== ENCOUNTER 2019-09-18 07:24 | Inpatient (IN) | payer BC ==
[2019-09-18] MEDS ORDERED: fentaNYL 250 MCG/5 ML SDV ONE (08:06)
[2019-09-18] MEDS ORDERED: Neostigmine Methylsulfate 1 MG/ML 5 ML Syringe ONE (08:07)
[2019-09-18] MEDS ORDERED: Glycopyrrolate 0.2 MG/ML 5 ML MDV ONE (08:07)
[2019-09-18] MEDS ORDERED: Rocuronium 50 MG/5 ML Vial ONE (08:07)
[2019-09-18] MEDS ORDERED: Succinylcholine 200 MG/10 ML MDV ONE (08:07)
[2019-09-18] MEDS ORDERED: Ondansetron 4 MG/2 ML SDV ONE (08:07)
[2019-09-18] MEDS ORDERED: Propofol 200 MG/20 ML SDV ONE (08:07)
[2019-09-18] MEDS ORDERED: Dexamethasone 4 MG/ML SDV ONE (08:07)
[2019-09-18] MEDS: Sodium Chloride 0.9% 1,000 ML IV SCH (09:04)
[2019-09-18] MEDS ORDERED: Naloxone 0.4 MG/ML SDV IVPUSH PRN (09:13)
[2019-09-18] MEDS ORDERED: ceFAZolin 2 GM in Sodium Chloride 0.9% 50 ML IV ONE (09:30)
[2019-09-18] MEDS ORDERED: metroNIDAZOLE/Normal Saline 500 MG in Premix Bag 1 BAG IV ONE (09:30)
[2019-09-18] MEDS ORDERED: Ondansetron 4 MG Tab.DIS PO PRN (10:17)
[2019-09-18] MEDS ORDERED: Metoclopramide 10 MG/2 ML SDV IV PRN (10:17)
[2019-09-18] MEDS ORDERED: Ondansetron 4 MG/2 ML SDV IVPUSH PRN (10:17)
[2019-09-18] MEDS ORDERED: Albuterol/Ipratropium 3.0-0.5 MG/3 ML Neb Soln NEB PRN (10:17)
[2019-09-18] MEDS ORDERED: Celecoxib 200 MG Cap PO SCH (10:30)
[2019-09-18] MEDS ORDERED: Scopolamine 1.5 MG Transdermal Patch TOP SCH (11:00)
[2019-09-18] MEDS ORDERED: Gabapentin 300 MG Cap PO SCH (14:00)
[2019-09-18] MEDS ORDERED: hydrOXYzine HCl 100 MG/2 ML SDV IM ONE (14:27)
[2019-09-18] MEDS ORDERED: Acetaminophen 1,000 MG in Premix Bag 1 BAG IV ONE ×2 (14:53→15:15)
[2019-09-18] MEDS: diphenhydrAMINE 50 MG/ML SDV IVPUSH PRN (19:58)
[2019-09-18] MEDS: Gabapentin 300 MG Cap PO SCH (20:13)
[2019-09-19] MEDS: diphenhydrAMINE 50 MG/ML SDV IVPUSH PRN ×4 (00:01→19:52)
[2019-09-19] MEDS: Sodium Chloride 0.9% 1,000 ML IV SCH ×2 (01:46→15:03)
[2019-09-19] MEDS: Celecoxib 200 MG Cap PO SCH (08:46)
[2019-09-19] MEDS: SCOPOLAMINE PATCH CHECK TOP SCH (08:47)
[2019-09-19] MEDS: Gabapentin 300 MG Cap PO SCH ×3 (08:47→20:01)
[2019-09-19] MEDS: fentaNYL 2,500 MCG in Sodium Chloride 0.9% 200 ML EPIDUR SCH (08:57)
[2019-09-19] MEDS ORDERED: Naloxone 0.4 MG/ML SDV IV PRN (10:29)
[2019-09-20] MEDS: diphenhydrAMINE 50 MG/ML SDV IVPUSH PRN ×5 (01:03→23:56)
[2019-09-20] MEDS: Sodium Chloride 0.9% 1,000 ML IV SCH (04:05)
[2019-09-20] MEDS: Gabapentin 300 MG Cap PO SCH ×3 (09:26→20:19)
[2019-09-20] MEDS: SCOPOLAMINE PATCH CHECK TOP SCH (09:26)
[2019-09-20] MEDS: Celecoxib 200 MG Cap PO SCH (09:27)
[2019-09-20] MEDS: fentaNYL 2,500 MCG in Sodium Chloride 0.9% 200 ML EPIDUR SCH (09:44)
--- NOTE | 2019-09-20 10:13 | PN ---
DATE OF SERVICE: 09/20/2019 SUBJECTIVE: Patient is doing very well today. Stools noted in his ostomy. No nausea, vomiting, shortness of breath, or chest pain. The pain is tolerable. OBJECTIVE: VITAL SIGNS: Stable. He is afebrile. CARDIOVASCULAR: Regular rhythm and rate. RESPIRATORY: Lungs are clear to auscultation bilaterally. ABDOMEN: Incision healing well. ASSESSMENT AND PLAN: Status post end colostomy. PLAN: No need for transfusion today. We will continue the epidural. Await improved GI function. He will be transferred out to the intensive care unit. Ian Zafar MD /[id number]
[2019-09-21] MEDS: diphenhydrAMINE 50 MG/ML SDV IVPUSH PRN (07:58)
[2019-09-21] MEDS: Gabapentin 300 MG Cap PO SCH ×3 (07:59→21:58)
[2019-09-21] MEDS: Celecoxib 200 MG Cap PO SCH (07:59)
[2019-09-21] MEDS: SCOPOLAMINE PATCH CHECK TOP SCH (08:00)
[2019-09-21] MEDS: Sodium Chloride 0.9% 1,000 ML IV SCH (08:37)
[2019-09-21] MEDS ORDERED: Tamsulosin 0.4 MG Cap.ER PO PRN (10:21)
[2019-09-21] MEDS: Acetaminophen/HYDROcodone 325-5 MG Tab PO PRN ×4 (10:46→21:59)
--- NOTE | 2019-09-21 11:50 | PN ---
DATE OF SERVICE: 09/21/2019 SUBJECTIVE: The patient continues to improve. Small functioning of the ostomy today. No nausea, vomiting, shortness of breath, or chest pain. OBJECTIVE: VITAL SIGNS: Stable. CARDIOVASCULAR: Regular rhythm and rate. RESPIRATORY: Lungs are clear to auscultation bilaterally. ABDOMEN: Incision is healing well. Ostomy pink, viable, with liquid-type stool noted in bag. ASSESSMENT: Status post sigmoid colon resection. PLAN: We will discontinue his epidural today. We will work on diet and activity, but continue full liquid diet. We will also start Lovenox today as he is not a bleeding risk any further and switch to p.o. pain medications. Ian Zafar MD /[id number]
[2019-09-21] MEDS: fentaNYL 100 MCG/2 ML SDV IVPUSH PRN ×2 (16:56→21:26)
[2019-09-22] MEDS: Acetaminophen/HYDROcodone 325-5 MG Tab PO PRN ×3 (01:58→10:09)
--- NOTE | 2019-09-22 08:09 | OR ---
DATE OF PROCEDURE: 09/18/2019 SURGEON: Ian Zafar MD PROCEDURE: Sigmoid colon resection. FINDINGS: 1. Approximately 15 palpable nodularities noted throughout the liver. 2. Probable local invasion/inflammation of the colon into the sacrum. 3. Significant inflammatory response secondary to radiation of the pelvis. INDICATION: This is a 54-year-old male, who has a stage IIIB rectal cancer and has undergone neoadjuvant therapy requiring primary tumor resection. We discussed risks, benefits, alternatives, and limitations including infection, bleeding, the possibility of ostomy leaks/anastomotic failures, abscess, hematoma, seroma, my experience with the procedure, and cardiovascular issues such as pneumonia myocardial infarction and others not listed here. These were explained both in the clinic and ACU. The patient understands these risks and wishes to proceed. PROCEDURE IN DETAIL: The patient was placed in supine position. An infraumbilical midline abdominal incision was made using electrocautery on the midline. Two Kochers were used to elevate the midline and the peritoneum was entered sharply without abnormality. A finger sweep technique was used and no adhesions or bowel was noted in proximity to the adhesion. This was opened up approximately to the level of the umbilicus. Although the liver could not be visualized due to the small incision, this was palpated and there were a minimum of approximately 15 palpable nodules ranging in size from approximately 5 mm to less than a centimeter. These were in all lobes of the liver and not specific to any segment. These were hard and most likely consistent with additional liver metastases. Attention was turned back to the resection. The patient had a fairly generous sigmoid colon, therefore, mobilization of the splenic flexure would not be probably required to create a tension-free anastomosis. The peritoneum was deflected and the sigmoid colon was mobilized. The patient noted to have a small pelvis typical of a male. Electrocautery was used to initiate this process. The total mesorectal excision was initiated in classic fashion. Combination of sharp and blunt dissection in conjunction with the stapling was initiated. Medially, there was difficulty due to combination of inflammation and local spread of the tumor. The large palpable nodes were noted and during mobilization of the posterior aspect of the colon with respect to the sacrum, there was no definable plane between the colon and the sacrum. The sacrum itself felt mushy and concerning for bone lytic type destruction. This was either due to inflammation or invasion of Waldeyer's fascia, regardless there was no anatomical plane present between the TME plane and the bone. During this process, the patient began to have significant bleeding issues. During this part of the process, the patient, who had already been typed and crossed, transfusion was initiated. The total blood loss during this procedure would be approximately 1500 mL and would be replaced with a combination of blood and fresh frozen plasma. Please see nurse manager intel notes for further description of the resuscitation efforts. Although the patient did have hypotensive issues, he did not have tachycardic issues, which was probably attributed to the blunting effect of the epidural. Nonetheless, the patient did not arrest code stroke or have any other significant issues other than the blood loss secondary to bleeding from the sacral plexus. Packing efforts were used as the bleeding was from the sacral plexus and would not be able to be suture ligated as this was bleeding from the bone itself. Additional hemostatic agents such as Floseal and Gelfoam were used in combination with this. The hemostatic efforts were successful. The bleeding was fully controlled and the patient returned to acceptable vital signs. At this time, scrub was broken and discussion was commenced with the family essentially explaining that due to the hypovolemic issues and the invasion/inflammation, this would not be surgically resected today. Therefore, the patient's family decided in conjunction with myself to perform a colostomy and no further surgical resection will be performed today. The sigmoid colon was then transected greater than 5 cm proximal to the lesion. This was stapled off using purple load curvilinear nikkie. Transection in the distal aspect needed to be performed using 45 mm black due to the total mesorectal excision and significant inflammation. A single stitch was placed in the proximal aspect of the sigmoid colon and this will be sent to pathology. Multiple times, the area was inspected for additional bleeding, none was noted. Two 10 flat Zach-Hooker drains were placed. The abdomen was thoroughly irrigated. No further attempts to investigate the liver were initiated due to the concern of the patient's hypovolemic status and the need to terminate the case to restore the patient back to normovolemic status. The fascia was closed with #1 Vicryl in running sutures, subcutaneous tissues were closed for potential space issues, and the nikkie were used to close the skin. Prior to this, the ostomy which would be delivered on the left side, a quarter-type skin defect was created using a 15 blade. A muscle sparing maneuver was used to pass the colon through. Careful attention was made to keep the orientation. This was tension-free and would be procured once the skin was closed and covered with an Ioban drape. The sponge and needle counts were all noted to be correct. Also of note, the sacral plexus bleeding was left open for greater than 5 minutes without packing to ensure no residual bleeding and none was noted. The ostomy was procured with interrupted Vicryl sutures. Ostomy bag was placed and the patient was sent to the intensive care unit. Ian Zafar MD /[id number]
[2019-09-22] MEDS ORDERED: Enoxaparin 40 MG/0.4 ML Syringe SUBCUT SCH (09:00)
[2019-09-22] MEDS: Celecoxib 200 MG Cap PO SCH (10:19)
[2019-09-22] MEDS: Gabapentin 300 MG Cap PO SCH (10:19)
== END 2019-09-22 10:28 | disposition home or self-care (01) | DRG 221 ==
LOC: JP.SDS 07:24 → JP.SDSSCHI 07:24 → EDSTATUS 07:30 → JP.ICU 10:17
PROVIDERS: ADMIT Surgery; ATTEND Surgery
PROC: 0DBP0ZZ Excision of Rectum, Open Approach (ICD-10-PCS; principal; 2019-09-18)
PROC: 0D1N0Z4 Bypass Sigmoid Colon to Cutaneous, Open Approach (ICD-10-PCS; 2019-09-18)
PROC: 0DBN0ZZ Excision of Sigmoid Colon, Open Approach (ICD-10-PCS; 2019-09-18)
PROC: 30233K1 Transfusion of Nonautologous Frozen Plasma into Peripheral Vein, Percutaneous Approach (ICD-10-PCS; 2019-09-18)
DX: C20 Malignant neoplasm of rectum (principal); C78.7 Secondary malignant neoplasm of liver and intrahepatic bile duct; E11.9 Type 2 diabetes mellitus without complications; K52.9 Noninfective gastroenteritis and colitis, unspecified; I10 Essential (primary) hypertension; Z96.659 Presence of unspecified artificial knee joint; Z98.890 Other specified postprocedural states; Z79.899 Other long term (current) drug therapy; Z87.891 Personal history of nicotine dependence
CPT/HCPCS: 36415; 36430; 80048; 83735; 84100; 85018; 85025; 85027; 86850; 86900; 86901; 86920; 86922; 88307; 94762; A9270-GY; C1894; J0131; J0330; J1100; J1200; J1642; J1650; J2405; J2704; J2710; J3010; J3410; J3490; J7030; J7050; P9016

== ENCOUNTER 2020-09-08 16:18 | Emergency (ER) | payer BC ==
[2020-09-08] MEDS ORDERED: Metoprolol Succinate 25 MG Tab.ER PO ONE (18:30)
--- NOTE | 2020-09-08 18:38 | EDM.PDOC ---
ED HPI GENERAL MEDICAL PROBLEM - General Chief Complaint: Cardiovascular Problem Stated Complaint: HIGH BP, SOB Time Seen by Provider: 09/08/20 18:10 Source of Information: Reports: Patient History Limitations: Reports: No Limitations - History of Present Illness INITIAL COMMENTS - FREE TEXT/NARRATIVE: Jerry Hamilton is a 55-year-old male presenting to the ED with concerns of elevated blood pressure. 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 He is currently undergoing chemotherapy in the [facility] every other being directed by the [facility]. In addition to the elevated blood pressure, the patient also has been having difficulty with sleep and was recently started on zolpidem. This has improved his sleep. The patient is concerned about his elevated blood pressure because it would exclude him from receiving chemotherapy. The patient has had elevation in his diastolic pressures over 100 mmHg with a systolic pressure between 140 and 160 mmHg. Patient also has been having some tachycardia and palpitations. Given the circumstances of his chemotherapy, he likely has catecholamine drive that is fairly high. I think that may be contributing to his symptoms of palpitations and tachycardia. - Related Data Allergies Allergy/AdvReac Type Severity Reaction Status Date / Time No Known Allergies Allergy Verified 09/18/19 08:28 Home Meds: Home Meds Acetaminophen/HYDROcodone [[place] 325-5 MG] 1 tab PO Q6H PRN #15 tab 05/10/19 [Rx] Erythromycin Base [Erythromycin] 1,000 mg PO Q3H #12 capsule. 05/10/19 [Rx] Neomycin [Neomycin Sulfate] 1,000 mg PO Q3H #6 tab 05/10/19 [Rx] Ondansetron [Zofran ODT] 4 mg PO Q6H PRN #12 tab.dis 05/10/19 [Rx] Pantoprazole [ProTONIX] 40 mg PO BIDAC #30 tab.cr 05/10/19 [Rx] Diclofenac Sodium [Voltaren] 4 gm TP QID 09/16/19 [History] LORazepam 1 mg PO BEDTIME PRN 09/16/19 [History] Metoprolol Tartrate 12.5 mg PO BID 30 Days #60 tablet 09/08/20 [Rx] Past Medical History - Past Health History Medical/Surgical History: Denies Medical/Surgical History Gastrointestinal History: Reports: GERD, Other (See Below) Other Gastrointestinal History: bloody stools, thought hemorrhoids. Rectal CA Musculoskeletal History: Reports: Arthritis, Back Pain, Chronic, Gout, Neck Pain, Chronic Oncologic (Cancer) History: Reports: Liver, Other (See Below) Other Oncologic History: rectal - Infectious Disease History Infectious Disease History: Reports: Chicken Pox - Past Surgical History GI Surgical History: Reports: Colon, Colonoscopy, Other (See Below) Other GI Surgeries/Procedures: 05/06/19, colonscopy, found sigmoid mass and spot on liver. Had a CT of chest, abd, pelvic. cryoablation of liver CA Musculoskeletal Surgical History: Reports: Knee Replacement Social & Family History - Family History Family Medical History: No Pertinent Family History HEENT: Reports: Hearing Impairment Cardiac: Reports: Bypass, Hypertension Musculoskeletal: Reports: Arthritis Endocrine/Metabolic: Reports: Diabetes, type II Oncologic: Reports: Breast, Liver - Tobacco Use Tobacco Use Status *Q: Former Tobacco User Years of Tobacco use: 15 Packs/Tins Daily: 1 Used Tobacco, but Quit: Yes Month/Year Tobacco Last Used: unknown Second Hand Smoke Exposure: No - Caffeine Use Caffeine Use: Reports: None - Recreational Drug Use Recreational Drug Use: No - Living Situation & Occupation Living situation: Reports: (lives in [place], [place]. with Joy Bell, have 7 children between them ages 31 to 19 years. One Son age 15 years on 2017.) ED ROS GENERAL - Review of Systems Review Of Systems: See Below Constitutional: Reports: Fatigue HEENT: Reports: No Symptoms Respiratory: Reports: No Symptoms Cardiovascular: Reports: Chest Pain (Intermittently when he feels like his blood pressure is elevated), Blood Pressure Problem Endocrine: Reports: No Symptoms GI/Abdominal: Reports: No Symptoms : Reports: No Symptoms Musculoskeletal: Reports: No Symptoms Skin: Reports: No Symptoms Neurological: Reports: Headache (Intermittently when he feels like his blood pressure is high) Psychiatric: Reports: Anxiety Hematologic/Lymphatic: Reports: No Symptoms Immunologic: Reports: No Symptoms ED EXAM, GENERAL - Physical Exam Exam: See Below Exam Limited By: No Limitations General Appearance: Alert, WD/WN, No Apparent Distress Eye Exam: Bilateral Eye: EOMI, PERRL Throat/Mouth: Normal Inspection, Normal Oropharynx Head: Atraumatic, Normocephalic Neck: Normal Inspection, Supple, Non-Tender, Full Range of Motion. No: Carotid Bruit Respiratory/Chest: No Respiratory Distress, Lungs Clear, Normal Breath Sounds, No Accessory Muscle Use Cardiovascular: Normal Peripheral Pulses, Regular Rate, Rhythm, No Edema, No Gallop, No JVD, No Murmur, No Rub. No: JVD Peripheral Pulses: 2+: Radial (L), Radial (R) Extremities: Normal Inspection Neurological: Alert, Oriented, CN II-XII Intact, Normal Cognition, No Motor/Sensory Deficits Psychiatric: Normal Affect, Normal Mood Skin Exam: Warm, Dry, Intact, Normal Color Lymphatic: No Adenopathy Course - Vital Signs Last Recorded V/S: Last Vital Signs Temp 36.1 C 09/08/20 17: Pulse 87 09/08/20 17:52 Resp 22 H 09/08/20 17:20 BP 143/91 H 09/08/20 17:52 Pulse Ox 98 09/08/20 17:52 - Orders/Labs/Meds Meds: Medications Discontinued Medications Generic Name Dose Route Start Last Admin Trade Name Olga PRN Reason Stop Dose Admin Metoprolol Succinate 12.5 mg 09/08/20 18:30 Toprol Xl PO 09/08/20 18:31 ONETIME ONE - Re-Assessments/Exams Free Text/Narrative Re-Assessment/Exam: 09/08/20 18:38 the patient likely has elevation in blood pressure and heart rate with palpitations due to catecholamine surge related to his chronic stress of having metastatic adenocarcinoma. For this reason we will start him on on metoprolol 12.5 mg twice daily. He will likely need to be raised to 25 mg in the next couple of weeks if not reaching an adequate goal of diastolic less than 90 and systolic less than 130. In addition to helping with the blood pressure may also help synergize his use of zolpidem as he has hard time shutting off his brain to sleep. We did discuss that we would use the short acting version initially with the planned that we would transition to the extended release if he tolerates it and once we achieve a stable dose. Patient is in agreement with this plan. At this time the patient is suitable for discharge in satisfactory condition. Indications to return to the ED were discussed with the patient and all questions were answered prior to discharge. Departure - Departure Time of Disposition: 18:40 Disposition: Home, Self-Care 01 Condition: Good Clinical Impression: Elevated blood pressure reading Prescriptions: Metoprolol Tartrate 12.5 mg PO BID 30 Days #60 tablet Instructions: Hypertension, Adult, [id number], Managing Your Hypertension Referrals: Queenie Royal MD [Primary Care Provider] - Care Plan Goals: Follow-up with your primary care provider in 2 weeks for recheck of your blood pressure and possible adjustment of the metoprolol. Sepsis Event Note (ED) - Evaluation Sepsis Screening Result: No Definite Risk - Focused Exam Vital Signs: Vital Signs Temp Pulse Resp BP Pulse Ox 09/08/20 17:52 87 143/91 H 98 09/08/20 17:28 85 155/92 H 98 09/08/20 17:20 36.1 C 91 22 H 157/103 H 100 09/08/20 17:03 36.1 C 91 22 H 157/103 H 100 - Problem List & Annotations (1) Elevated blood pressure reading SNOMED Code(s): 15219336 Code(s): R03.0 - ELEVATED BLOOD-PRESSURE READING, W/O DIAGNOSIS OF HTN Status: Acute Priority: Medium Current Visit: Yes - Problem List Review Problem List Initiated/Reviewed/Updated: Yes
== END 2020-09-08 18:59 | disposition home or self-care (01) ==
LOC: JP.ED 16:18
DX: R03.0 Elevated blood-pressure reading, without diagnosis of hypertension (principal); K21.9 Gastro-esophageal reflux disease without esophagitis; Z79.899 Other long term (current) drug therapy; Z87.891 Personal history of nicotine dependence
CPT/HCPCS: 99283; A9270